=== PATIENT | male | born 1985 ===

== ENCOUNTER 2016-07-15 05:59 | Emergency (ER) | payer SELFPAY ==
[~2016-07-15] VITALS: Ht 185.4 cm; Wt 100.0 kg
--- NOTE | 2016-07-15 06:27 | NUR ---
Pt states that "I'm tired of life" text was sent to his ex-girlfriend and she interpretted that as a suicidal threat. Pt states that he sees why she thought that but he never said that he threatened suicide. The message was sent last night at 2000 and the police came and woke him up at 0600 this morning. Since she could not get ahold of him (because he was sleeping) she called the police. He states that he has been depressed because he is "always the lou that girls have to hide because he is not good enough." The ex is his 10 year old son's mother. 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 He asked her tonight "what they were" and she said "just friends" which upset him because he is still in love with her. 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
[2016-07-15 06:53] LABS: BILIRUBIN,URINE Negative (Negative); CLARITY,URINE Clear; COLOR,URINE Yellow; GLUCOSE, URINE (UA) Negative (Negative); LEUKOCYTE ESTERASE ,URINE Negative (Negative); PH,URINE 5.5 (5.0 - 8.0); UROBILINOGEN,URINE 0.2 mg/dL (0.2-1.0)
[2016-07-15 06:55] LABS: MEAN CORPUSCULAR VOLUME 91 FL (80-100); MEAN PLATELET VOLUME 8.9 FL (6.0-9.5); PLATELET COUNT 219 10^3uL (150-450); WHITE BLOOD COUNT 13.11 10^3uL (4.0-11.0)
[2016-07-15 06:56] LABS: MEAN CORPUSCULAR HEMOGLOBIN 32.3 PG (26.0-34.0); MEAN CORPUSCULAR HGB CONC 35.7 g/dL (31.0-37.0)
[2016-07-15 07:01] LABS: BAND NEUTROPHILS % 0 % (0-6); EOSINOPHILS % 0 % (0-4); LYMPHOCYTES # 2.6 #; MONOCYTES # 0.3 #; MONOCYTES % 2 % (3-11); RBC MORPH NORMAL (NORMAL); SEGMENTED NEUTROPHILS % 78 % (51-67); TOTAL CELLS COUNTED 100
[2016-07-15 07:03] LABS: URINE CENTRIFUGED VOLUME 12 mL
[2016-07-15 07:06] LABS: ALBUMIN 4.3 g/dL (3.4-5.0); ALKALINE PHOSPHATASE 61 U/L (38-126); ANION GAP 16.6 MEQ/L (3-15); BUN/CREATININE RATIO 13 (10-20); CALCULATED IONIZED CALCIUM 3.9 mg/dL (3.8-4.6); TOTAL PROTEIN 7.3 g/dL (6.4-8.5)
[2016-07-15 07:06] LABS: AMPHETAMINE SCREEN, URINE Negative (Negative); CANNABINOID SCREEN, URINE Positive (Negative); METHAMPHETAMINE SCREEN URINE S NEGATIVE (NEGATIVE); OPIATE SCREEN URINE Negative (Negative); PROPOXYPHENE STAT NEGATIVE (NEGATIVE)
--- NOTE | 2016-07-15 07:43 | NUR ---
[place] notified of psychiatric screen. Screener not available, will call us when able.
[2016-07-15 08:09] VITALS: BP 151/80
== END 2016-07-15 08:10 | disposition home or self-care (01) ==
LOC: ED 06:01
DX: F32.9 Major depressive disorder, single episode, unspecified (principal)
CPT/HCPCS: 36415; 80053; 80307; 80320; 80329; 81003; 81015; 85025; 87088; 99283; 99284